=== PATIENT | male | born 1980 | race Caucasian/White ===

== ENCOUNTER 2024-05-08 20:23 | Inpatient (IN) ==
[2024-05-08] MEDS ORDERED: VANCOMYCIN CONSULT ACTIVE PRN (20:50)
[2024-05-08 21:06] LABS: Basophils # (auto) 0.07 K/uL (0.00-0.20); Basophils % (auto) 0.5 %; Eosinophils # (auto) 0.05 K/uL (0.00-0.50); Eosinophils % (auto) 0.4 %; Hematocrit (blood only) 44.8 % (42.0-52.0); Hemoglobin 15.6 g/dl (14.0-18.0); Immature Granulocytes # (auto) 0.06 K/uL (0.01-0.20); Immature Granulocytes % (auto) 0.4 %; Lymphocytes # (auto) 2.56 K/uL (1.20-3.40); Mean Corpuscular Hemoglobin 31.1 pg (25.0-34.0); Mean Corpuscular Hgb Conc 34.8 g/dL (32.0-36.0); Mean Corpuscular Volume 89.2 fL (80.0-100.0); Mean Platelet Volume 9.9 fL (9.4-12.4); Monocytes # (auto) 1.47 K/uL (0.11-0.59); Monocytes % (auto) 10.9 %; Neutrophils # (auto) 9.27 K/uL (1.40-6.50); Neutrophils % (auto) 68.8 %; Platelet Count 294 K/uL (130-400); RDW Standard Deviation 39.1 fL (36.4-46.3); Red Blood Count 5.02 M/uL (4.70-6.10); White Blood Count 13.48 K/ul (4.8-10.8)
[2024-05-08] MEDS: SODIUM CHLORIDE 0.9% 1,000 ML IV ONE (21:06)
[2024-05-08] MEDS: cefTRIAXone SODIUM 2,000 MG/50 ML BAG IV STA (21:07)
[2024-05-08] MEDS: DIPHTHER/TETAN/PERTUS Vaccine (Tdap, Adol/Adult) 0.5mL IM ONE (21:07)
[2024-05-08] MEDS: VANCOMYCIN HCL 1,750 MG in SODIUM CHLORIDE 0.9% 500 ML IV STA (21:34)
[2024-05-08 22:18] LABS: Albumin Globulin Ratio 1.7 (0.9-2); Albumin Level 4.7 gm/dl (3.4-5.0); BUN Creatinine Ratio 8.1 (10-20); Bilirubin,Total 0.9 mg/dl (0.2-1.0); Calcium 9.6 mg/dl (8.6-10.3); Creatinine Clr Calc Pharmacy 122.9 ml/min; Est GFR (African American) 124.8 ml/min; Est GFR (Non-African American) 107.7 ml/min; Globulin 2.8 gm/dl (2.5-4.0); Potassium 3.5 mmol/L (3.5-5.1); Total Protein 7.5 gm/dl (6.0-8.3)
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
[2024-05-09] MEDS ORDERED: Ativan IV Alcohol Withdrawal--Active Protocol IV PRN (01:59)
[2024-05-09] MEDS ORDERED: LORazepam 2 MG in SYRINGE 1 ML IV PRN (01:59)
[2024-05-09] MEDS ORDERED: POLYETHYLENE (MIRALAX) 17 GM PACK PO PRN (01:59)
[2024-05-09] MEDS ORDERED: GABAPENTIN 1200MG ALCOHOL WITHDRAWAL LOAD PO STA (01:59)
[2024-05-09] MEDS ORDERED: LORazepam 1 MG in SYRINGE 0.5 ML IV PRN (01:59)
[2024-05-09] MEDS ORDERED: LORazepam 3 MG in SYRINGE 1.5 ML IV PRN (01:59)
[2024-05-09] MEDS: MULTI-VITAMIN INFUSION 10 ML, THIAMINE HCL 100 MG, FOLIC ACID 1 MG in SODIUM CHLORIDE 0... IV ONE (02:50)
[2024-05-09] MEDS: GABAPENTIN 600 MG TAB PO ONE (02:52)
[2024-05-09] MEDS: HYDROmorphone INJ 0.5 MG/0.5 ML SYR IV PRN (04:54)
[2024-05-09] MEDS: SODIUM CHLORIDE 0.9% 1,000 ML IV SCH (04:58)
[2024-05-09] MEDS: VANCOMYCIN HCL 1,500 MG in SODIUM CHLORIDE 0.9% 500 ML IV SCH (04:59)
[2024-05-09 06:51] LABS: Basophils # (auto) 0.07 K/uL (0.00-0.20); Basophils % (auto) 0.7 %; Eosinophils # (auto) 0.08 K/uL (0.00-0.50); Eosinophils % (auto) 0.8 %; Hematocrit (blood only) 38.8 % (42.0-52.0); Hemoglobin 13.3 g/dl (14.0-18.0); Immature Granulocytes # (auto) 0.03 K/uL (0.01-0.20); Immature Granulocytes % (auto) 0.3 %; Lymphocytes # (auto) 2.46 K/uL (1.20-3.40); Lymphocytes % (auto) 23.4 %; Mean Corpuscular Hemoglobin 30.9 pg (25.0-34.0); Mean Corpuscular Hgb Conc 34.3 g/dL (32.0-36.0); Mean Platelet Volume 10.2 fL (9.4-12.4); Monocytes # (auto) 1.19 K/uL (0.11-0.59); Monocytes % (auto) 11.3 %; Neutrophils % (auto) 63.5 %; Platelet Count 226 K/uL (130-400); RDW Standard Deviation 39.8 fL (36.4-46.3); Red Blood Count 4.31 M/uL (4.70-6.10); White Blood Count 10.53 K/ul (4.8-10.8)
[2024-05-09 07:07] LABS: Albumin Globulin Ratio 1.6 (0.9-2); Albumin Level 3.6 gm/dl (3.4-5.0); BUN Creatinine Ratio 10.8 (10-20); Bilirubin,Total 0.5 mg/dl (0.2-1.0); Est GFR (African American) 132.8 ml/min; Est GFR (Non-African American) 114.6 ml/min; Globulin 2.3 gm/dl (2.5-4.0); Magnesium 2.1 mg/dl (1.7-2.4); Potassium 3.8 mmol/L (3.5-5.1); Total Protein 5.9 gm/dl (6.0-8.3)
--- NOTE | 2024-05-09 07:08 | XRay Report ---
XR elbow RT min 3V routine CLINICAL HISTORY: Right elbow infection after trauma. COMPARISON: None FINDINGS: Alignment of the right elbow is anatomic. There is no acute fracture. No bony erosion is i dentified. No evidence for joint effusion. Posterior right elbow soft tissue swelling is noted. Irreg ularity of the proximal posterior soft tissues of the right forearm is also noted. There are associat ed punctate radiodensities which project over the skin or subcutaneous tissues. IMPRESSION: 1. No fractures within the right elbow. No joint effusion. No evidence for osteomyelitis. 2. Posterior right elbow and proximal forearm soft tissue swelling with soft tissue irregularity whic h may reflect a laceration. Associated punctate radiodensities project over the skin or subcutaneous tissues. These may reflect debris/tiny foreign bodies. ACT 112: Negative or not required by law. Electronically signed by: Eron Palumbo M.D. 05/09/2024 7:06 AM
[2024-05-09 07:42] LABS: Folate (Folic Acid),Ser orPlas > 22.30 ng/ml (>5.38)
[2024-05-09 07:43] LABS: Vitamin B12 291 pg/ml (180-914)
[2024-05-09] MEDS: THIAMINE HCL 100 MG TAB PO SCH (08:07)
[2024-05-09] MEDS: FOLIC ACID 1 MG TAB PO SCH (08:07)
[2024-05-09] MEDS: GABAPENTIN 600 MG TAB PO SCH ×2 (08:07→21:31)
[2024-05-09] MEDS: ACETAMINOPHEN 325 MG TAB PO PRN (08:07)
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
--- NOTE | 2024-05-09 09:58 | XRay Report ---
XR shoulder RT min 2V routine CLINICAL HISTORY: Shoulder pain. Recent fall COMPARISON: None FINDINGS: There is slight widening of the right AC joint interval. Several corticated ossicles along the distal right clavicle measure up to 1.6 cm. No acute fractures are identified. Alignment of the right humeral joint is anatomic. IMPRESSION: 1. No acute fracture within the right shoulder. 2. Slight widening of the right AC joint interval with several associated well-corticated ossicles. T he findings suggest old injury. ACT 112: Negative or not required by law. Electronically signed by: Eron Palumbo M.D. 05/09/2024 9:57 AM
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
--- NOTE | 2024-05-09 16:31 | Anesthesiology Consultation ---
Date of Service May 09, 2024 Assessment & Plan Chart Review Chart Review: Acceptable Risk for Surgery and Patient NOT seen in Pre Admission Testing Consults Requested none History Surgery Operation Date: 05/09/24 09:10 Proposed Procedures p Right Elbow Incision and Drainage - Samuel Fauzia Campoverde MD Height/Weight Height: 5 ft 7 in Weight: 94.6 kg Allergies Allergy/AdvReac Type Severity Reaction Status Date / Time cat dander Allergy Congested Verified 05/08/24 23:51 dog dander Allergy Congested Verified 05/08/24 23:51 grass pollen Allergy Congested Verified 05/08/24 23:51 pollen extracts Allergy Congested Verified 05/08/24 23:51 Medications Home Medications Medication Instructions Recorded Confirmed Last Taken gabapentin 100 mg capsule 100 mg PO TID 05/08/24 05/08/24 Unknown Active Medications Generic Name Dose Route Start Last Admin Trade Name Freq PRN Reason Stop Dose Admin Acetaminophen 650 mg 05/09/24 01:59 05/09/24 08:07 Acetaminophen 325 Mg Tab PO 06/08/24 01:58 650 mg Q4H PRN Administration pain/fever Folic Acid 1 mg 05/09/24 09:00 05/09/24 08:07 Folic Acid 1 Mg Tab PO 06/08/24 08:59 1 mg QAM RAVI Administration Hydromorphone HCl 0.5 mg 05/09/24 01:59 05/09/24 04:54 Hydromorphone Inj 0.5 Mg/0.5 Ml Syr IV 05/23/24 01:58 0.5 mg Q6H PRN Administration Severe Pain (Scale 7, 8, 9,10) Sodium Chloride 1,000 mls @ 100 mls/hr 05/09/24 04:30 05/09/24 13:16 Nss IV 06/08/24 04:29 100 mls/hr .Q10H RAVI Administration Vancomycin HCl 1,500 mg/ 530 mls @ 200 mls/hr 05/09/24 04:00 05/09/24 08:24 Sodium Chloride IV 05/16/24 03:59 Infused Q12H RAVI Infusion Thiamine HCl 100 mg 05/09/24 09:00 05/09/24 08:07 Thiamine Hcl 100 Mg Tab PO 06/08/24 08:59 100 mg QAM RAVI Administration Past Medical History Medical History No pertinent past medical history Past Family History Family History Other No pertinent family history Past Surgical History Surgical History No pertinent past surgical history Social History Smoking Status: Current every day smoker Do You Dip or Chew Tobacco: No Hx Alcohol Use: Yes Alcohol type: beer alcohol intake frequency: other Alcohol Intake Frequency Comment: 7-8 beers per day Hx Substance Use: No Physical Exam Vital Signs Last Vital Signs Temp 37.2 C 05/09/24 14:52 Pulse 74 05/09/24 14:52 Resp 16 05/09/24 14:52 BP 132/82 05/09/24 14:52 Pulse Ox 98 05/09/24 14:52 O2 Del Method Room Air 05/09/24 14:52 Testing Laboratory Results 05/09/24 06:29 05/09/24 06:29 05/08/24 20:51 Gram Stain - Final Elbow Wound Culture - Preliminary Pin-point growth present, reincubating.
[2024-05-09] MEDS ORDERED: fentaNYL citrate PF 100 MCG/2 ML VIAL ONE (16:57)
[2024-05-09] MEDS ORDERED: LIDOCAINE 2% 2 ML VIAL/AMP(20MG/ML) INFIL ONE (16:57)
[2024-05-09] MEDS ORDERED: MIDAZOLAM HCL 1 MG/ML 2ML VIAL ONE (16:57)
[2024-05-09] MEDS ORDERED: ONDANSETRON INJ 2 MG/ML 2 ML VIAL ONE (16:57)
[2024-05-09] MEDS ORDERED: fentaNYL citrate PF 100 MCG/2 ML VIAL IV PRN (16:57)
[2024-05-09] MEDS ORDERED: DEXAMETHASONE SOD INJ 4 MG/ML VIAL ONE (16:57)
[2024-05-09] MEDS ORDERED: ONDANSETRON INJ 2 MG/ML 2 ML VIAL IV PRN (16:57)
[2024-05-09] MEDS ORDERED: ePHEDrine sulfate 50 MG/ML AMP IV PRN (16:57)
[2024-05-09] MEDS ORDERED: ATROPINE SULFATE 0.1 MG/ML 10ML SYR IV PRN (16:57)
[2024-05-09] MEDS ORDERED: GLYCOPYRROLATE 0.2 MG/ML VIAL ONE (17:57)
[2024-05-09] MEDS ORDERED: KETAMINE HCL 10MG/ML SYR ONE (17:58)
[2024-05-09] MEDS ORDERED: HYDROmorphone INJ 2 MG/ML SYR/VIAL ONE (18:02)
--- NOTE | 2024-05-09 19:04 | Post Operative Brief Note ---
Immediate Post Op Note Date of Surgery May 09, 2024 Pre & Post Diagnosis Operation Date: 05/09/24 09:10 Pre-Op Diagnosis: (1) Open wound of right elbow Post-Op Diagnosis: (1) Open wound of right elbow I identified the patient and participated in the time-out.: Yes Procedure Operation Date: 05/09/24 09:10 Actual Procedures p Right Elbow Incision and Drainage(Right) - Samuel Campoverde MD Surgeon Samuel Campoverde MD Commission Sales Associate Ariella Ware DO & Ariella Cutler PA-C Estimated Blood Loss 30 Findings Consistent with Post-Op Diagnosis Fluids 700 cc Specimens Right elbow Cx & S Drains Hemovac Drain Anesthesia Type MAC Complications none
--- NOTE | 2024-05-09 19:09 | Operative Report ---
Post Operative Report Pre & Post Diagnosis Operation Date: 05/09/24 09:10 Pre-Op Diagnosis: Open wound of right elbow Post-Op Diagnosis: Open wound of right elbow I identified the patient and participated in the time-out.: Yes Procedure Operation Date: 05/09/24 09:10 Actual Procedures p Right Elbow Incision and Drainage(Right) - Samuel Campoverde MD Surgeon Samuel Campoverde MD Parachute Harness Rigger Ariella Ware DO & Ariella Cutler PA-C Estimated Blood Loss 30 Findings See Below Open wound right elbow, with serosanguineous drainage, went down to the fascia and olecranon. Significant fibrous tissue along and within the wound involving the olecranon bursa. Curve laceration over the proximal Ulnar forearm/elbow (8 cm). Fluids 700 cc Specimens Right elbow Cx & S Drains HVAC Anesthesia Type MAC Complications none Indications The patient had draining wound from there right elbow that appears to be infected. The patient understands the risks of surgery, which include but are n ot limited to: bleeding, infection, re-operation, damage to nerves and arteries, continued pain and DVT. The patient understands all of these instructions and explanations, all of their questions have been satisfactorily addressed. The patient has elected to proceed with surgery and the informed consent was signed. Description of Procedure The patient was taken to the Operating Room and placed in the lazy lateral position on the operating table. After sufficient sedation was administered a multidisciplinary time-out was performed identifying my initials on the right limb as the correct and operative limb. The patient has been receiving IV Vancomycin. The right arm was prepped and draped in the usual Orthopaedic sterile fashion. The skin edges of the laceration as well as planned extension of the wound radially around the olecranon were injected with a 50:50 mixture of 1% lidocaine and 0.5 % Marcaine with epi for a total of 10 cc. There was devitalized, necrotic soft tissue within the wound and under the proximal flap of skin to the olecranon. The fascia, muscle, and bone were otherwise intact. There also appeared to be purulent drainage which was cultured. The non-viable skin, soft tissue down to the olecranon was removed with a combination of sharp dissection with the scalpel, scissors, Versajet, and rongeur. The wound was copiously irrigated with 6.5 L normal saline. Following irrigation and debridement there was healthy viable red beefy tissue that was bleeding. A Hemovac drain was placed and sutured in place. The skin were closed with 3-0 & 2-0 Prolene. The wound was covered Xeroform, 4 x 4's, ABDs, sterile cast padding, and an RAY. The sponge and needle counts were correct. POST-OP: Patient will be re-admitted to the hospitalist service and continued on IV Vancomycin. Will re-evaluate the wound POD. I attest to the content of the Intraoperative Record and any orders documented therein. Any exceptions are noted below.
[2024-05-09] MEDS: LIDOCAINE 1%/EPINEPHRINE 1:100,000 50 ML VIAL ONE (19:16)
--- NOTE | 2024-05-09 19:32 | Operative Report ---
Post Operative Report Pre & Post Diagnosis Operation Date: 05/09/24 09:10 Pre-Op Diagnosis: (1) Open wound of right elbow: Post-Op Diagnosis: (1) Open wound of right elbow: I identified the patient and participated in the time-out.: Yes Procedure Operation Date: 05/09/24 09:10 Actual Procedures p Right Elbow Incision and Drainage(Right) - Samuel Campoverde MD Surgeon DO Assistant Ariella Nugent DO & C TAMMY Cutler Estimated Blood Loss 30 Findings Consistent with Post-Op Diagnosis Specimens Cultures right elbow wound x1 Drains Hemovac drain Description of Procedure The patient was taken to the operating room where they underwent MAC sedation per anesthesia provider. They were prepped and draped in the usual sterile fashion. Please see Dr. Campoverde's operative report for specifics of the procedure. I was present for the entire case from initial patient positioning through final closure. Assistance was provided in tissue retraction, hemostasis, wound debridement, final wound closure, and postoperative bandaging. The patient was taken to the recovery room in satisfactory condition. I attest to the content of the Intraoperative Record and any orders documented therein. Any exceptions are noted below.
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
--- NOTE | 2024-05-09 19:51 | Anesthesiology Progress Note ---
Date of Service May 09, 2024 Anesthesia Post Procedure Vital Signs Vital Signs: Temp Pulse Pulse Pulse Resp BP BP 05/09/24 19:45 37.4 C 82 14 144/99 H 05/09/24 19:35 87 12 155/91 H 05/09/24 19:26 37.0 C 95 H 20 146/110 H 05/09/24 16:15 38.6 C H 77 18 05/09/24 16:00 05/09/24 14:52 37.2 C 74 16 132/82 05/09/24 08:17 05/09/24 07:54 36.9 C 76 18 139/73 05/09/24 04:46 36.8 C 77 16 05/09/24 01:35 36.9 C 77 16 05/08/24 22:48 78 18 05/08/24 21:25 73 18 05/08/24 20:26 36.9 C 96 H 16 150/90 H BP Pulse Ox O2 Del Method O2 Flow Rate 05/09/24 19:45 94 Room Air 05/09/24 19:35 100 Oxymask 8 05/09/24 19:26 95 Oxymask 8 05/09/24 16:15 151/84 H 97 Room Air 05/09/24 16:00 Room Air 05/09/24 14:52 98 Room Air 05/09/24 08:17 Room Air 05/09/24 07:54 94 Room Air 05/09/24 04:46 128/78 96 Room Air 05/09/24 01:35 148/74 H 98 Room Air 05/08/24 22:48 125/91 96 Room Air 05/08/24 21:25 133/85 96 Room Air 05/08/24 20:26 96 Room Air Pain Intensity Right Elbow: Pain Intensity: 2 Transfer of Care Handoff Completed per policy Notes Mental Status: alert / awake / arousable Patient Amnestic to Procedure: Yes Nausea / Vomiting: adequately controlled Pain: adequately controlled Airway Patency, RR, SpO2: stable & adequate BP & HR: stable & adequate Hydration State: stable & adequate Anesthetic Complications: no major complications apparent and Pt Satisfied with anesthetic care
[2024-05-09] MEDS: cefTRIAXone SODIUM 2,000 MG/50 ML BAG IV SCH (21:31)
[2024-05-10 08:00] LABS: Hematocrit (blood only) 36.7 % (42.0-52.0); Hemoglobin 12.3 g/dl (14.0-18.0); Mean Corpuscular Hemoglobin 30.5 pg (25.0-34.0); Mean Corpuscular Hgb Conc 33.5 g/dL (32.0-36.0); Mean Corpuscular Volume 91.1 fL (80.0-100.0); Mean Platelet Volume 10.4 fL (9.4-12.4); Platelet Count 224 K/uL (130-400); RDW Coefficient of Variation 11.9 % (11.5-14.5); RDW Standard Deviation 39.7 fL (36.4-46.3); Red Blood Count 4.03 M/uL (4.70-6.10); White Blood Count 10.92 K/ul (4.8-10.8)
[2024-05-10 08:19] LABS: Calcium 8.4 mg/dl (8.6-10.3); Creatinine Clr Calc Pharmacy 128.4 ml/min; Est GFR (African American) 126.7 ml/min; Est GFR (Non-African American) 109.3 ml/min; Potassium 4.1 mmol/L (3.5-5.1)
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
--- NOTE | 2024-05-10 13:00 | Orthopedic Progress Note ---
Date of Service May 10, 2024 Assessment & Plan (1) Open wound of right elbow: Plan: Septic olecranon bursitis right elbow status post open wound. Status post I&D right elbow with Dr. Campoverde on May 09, 2024. Hemovac drain was removed today. A new bulky dressing was applied. Will continue to monitor and evaluate the wound over the next few days. He can do gentle range of motion with his right arm as tolerated. No heavy pushing, pulling or lifting. No pressure on the right elbow. Encouraged ice and elevation of the right upper extremity. Sling right arm for comfort. He can be out of bed as tolerated. Regular diet. Pain medication as needed. Encouraged finger and elbow range of motion Continue IV antibiotics. Dr. Campoverde would like to get an ID consult. Culture results from OR are pending but initial results are no organisms. Previous organisms are gram-negative bacilli. Blood cultures are negative. Patient understands and agrees with the plan. Would like at least 48 hours of IV antibiotics before discharged home. Case management for disposition needs. Will continue to follow. Admission and Anticipated Discharge Date Admission Date: May 08, 2024 Supervising Physician Co-Signing Physician Notes I, Dr. Campoverde, saw and examined the patient and agree with the above findings and plan of care, that I discussed with my PA. Subjective Patient in bed resting. States that he is getting bored. He denies any significant pain in the elbow. Does feel better today than yesterday. No issues from anesthesia overnight. Tolerating a regular diet. Denies any numbness or tingling in his right upper extremity. Physical Exam Musculoskeletal: Exam of his right elbow: His postoperative dressings were removed. His incision is clean, dry and intact. He has some what appears to be some necrotic area just over the olecranon. There is no collection of fluid in the bursa. Is mildly tender with palpation as expected postoperatively. Sutures are retained. No active drainage. His Hemovac stitch was removed and the Hemovac was pulled at bedside. Mild edema into the forearm. Less erythema throughout the upper arm and around the elbow itself. Tolerates gentle range of motion of the elbow. A new bulky dressing was reapplied along with an Carlos Manuel bandage. Full range of motion of fingers, wrist. Capillary fill is brisk. Distal pulses are 1+. Results & Data Vital Signs (Past 12 Hours) Vital Signs Temp Pulse Pulse Resp BP Pulse Ox O2 Del Method 05/10/24 12:39 37.4 C 68 16 133/75 98 Room Air 05/10/24 12:04 36.6 C 80 16 150/74 H 98 Room Air 05/10/24 07:32 37.3 C 68 16 115/51 L 97 Room Air 05/10/24 03:05 38 C H 79 16 132/71 93 Room Air Laboratory Results 05/10/24 05/10/24 Range/Units 11:38 07:12 WBC 10.92 H (4.8-10.8) K/ul RBC 4.03 L (4.70-6.10) M/uL Hgb 12.3 L (14.0-18.0) g/dl Hct 36.7 L (42.0-52.0) % MCV 91.1 (80.0-100.0) fL MCH 30.5 (25.0-34.0) pg MCHC 33.5 (32.0-36.0) g/dL RDW Std Deviation 39.7 (36.4-46.3) fL RDW Coeff of Anneliese 11.9 (11.5-14.5) % Plt Count 224 (130-400) K/uL MPV 10.4 (9.4-12.4) fL Sodium 138 (136-145) mmol/L Potassium 4.1 (3.5-5.1) mmol/L Chloride 106 (98-107) mmol/L Carbon Dioxide 26 (21-32) mmol/L Anion Gap 6 (3-11) BUN 5 L (6-23) mg/dl Creatinine 0.83 (0.6-1.4) mg/dl Est Cr Clr Drug Dosing 128.4 ml/min Est GFR ( Amer) 126.7 ml/min Est GFR (Non-Af Amer) 109.3 ml/min BUN/Creatinine Ratio 6.0 L (10-20) Glucose 117 H (70-99(Fasting)) mg/dl Calcium 8.4 L (8.6-10.3) mg/dl Random Vancomycin 8.1 L (10-20) mcg/ml Microbiology 05/09/24 Unknown Gram Stain - Final Elbow Aerobic and Anaerobic Culture - Preliminary Pin-point growth present, reincubating. 05/08/24 20:51 Gram Stain - Final Elbow Wound Culture - Preliminary Gram negative bacilli Gram negative bacilli#2 05/08/24 20:50 Aerobic Blood Culture - Preliminary Blood No growth in Aerobic bottle after 24 hours. Anaerobic Blood Culture - Preliminary No growth in Anaerobic bottle after 24 hours.
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
[2024-05-10] MEDS: VANCOMYCIN HCL 1,500 MG in SODIUM CHLORIDE 0.9% 500 ML IV SCH (15:32)
[2024-05-10] MEDS: GABAPENTIN 600 MG TAB PO SCH (23:12)
[2024-05-11 07:21] LABS: Basophils # (auto) 0.04 K/uL (0.00-0.20); Basophils % (auto) 0.5 %; Eosinophils # (auto) 0.18 K/uL (0.00-0.50); Eosinophils % (auto) 2.1 %; Hemoglobin 13.3 g/dl (14.0-18.0); Immature Granulocytes # (auto) 0.03 K/uL (0.01-0.20); Immature Granulocytes % (auto) 0.3 %; Lymphocytes # (auto) 2.37 K/uL (1.20-3.40); Lymphocytes % (auto) 27.3 %; Mean Corpuscular Hgb Conc 34.1 g/dL (32.0-36.0); Mean Corpuscular Volume 90.9 fL (80.0-100.0); Mean Platelet Volume 10.5 fL (9.4-12.4); Monocytes # (auto) 1.01 K/uL (0.11-0.59); Monocytes % (auto) 11.6 %; Neutrophils # (auto) 5.05 K/uL (1.40-6.50); Neutrophils % (auto) 58.2 %; Platelet Count 243 K/uL (130-400); RDW Coefficient of Variation 11.7 % (11.5-14.5); RDW Standard Deviation 38.7 fL (36.4-46.3); Red Blood Count 4.29 M/uL (4.70-6.10); White Blood Count 8.68 K/ul (4.8-10.8)
[2024-05-11 07:48] LABS: Albumin Level 3.7 gm/dl (3.4-5.0); Bilirubin,Total 0.5 mg/dl (0.2-1.0); Calcium 8.7 mg/dl (8.6-10.3); Potassium 3.8 mmol/L (3.5-5.1)
[2024-05-11 07:54] LABS: Albumin Globulin Ratio 1.3 (0.9-2); BUN Creatinine Ratio 9.1 (10-20); Creatinine Clr Calc Pharmacy 138.4 ml/min; Est GFR (African American) 130.6 ml/min; Est GFR (Non-African American) 112.7 ml/min; Globulin 2.8 gm/dl (2.5-4.0); Total Protein 6.5 gm/dl (6.0-8.3)
[2024-05-11] MEDS: CEFEPIME 2,000 MG in SYRINGE 0 ML IV SCH (10:17)
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
--- NOTE | 2024-05-11 12:50 | Orthopedic Progress Note ---
Date of Service May 11, 2024 Assessment & Plan (1) Open wound of right elbow: Plan: POD # 2 Status post I&D right elbow with Dr. Campoverde on May 09, 2024. A new bulky dressing was applied. Will continue to monitor and evaluate the wound over the next few days. He can do gentle range of motion with his right arm as tolerated. No heavy pushing, pulling or lifting. No pressure on the right elbow. Encouraged ice and elevation of the right upper extremity. Sling right arm for comfort. He can be out of bed as tolerated. Regular diet. Pain medication as needed. Encouraged finger and elbow range of motion Continue IV antibiotics. Awaiting ID consult. Culture results from OR are gram-negative bacilli. Blood cultures are negative. Patient understands and agrees with the plan. Defer antibiotic choice to ID before discharged home. Case management for disposition needs. Will continue to follow. Continue care per primary service. Admission and Anticipated Discharge Date Admission Date: May 08, 2024 Subjective Feeling better, the elbow feels tight. Physical Exam Physical Exam: RUE: Neurovascularly intact. Incision portion looks great, the wound portion has blackened edge, will likely slough at some point. No significant swelling. Decreased erythema. Slight warmth about the elbow. ROM 5-125 deg. Results & Data Vital Signs (Past 12 Hours) Vital Signs Temp Pulse Resp BP Pulse Ox O2 Del Method 05/11/24 11:43 Room Air 05/11/24 07:25 36.6 C 81 18 156/83 H 98 Room Air Laboratory Results 05/11/24 Range/Units 06:26 WBC 8.68 (4.8-10.8) K/ul RBC 4.29 L (4.70-6.10) M/uL Hgb 13.3 L (14.0-18.0) g/dl Hct 39.0 L (42.0-52.0) % MCV 90.9 (80.0-100.0) fL MCH 31.0 (25.0-34.0) pg MCHC 34.1 (32.0-36.0) g/dL RDW Std Deviation 38.7 (36.4-46.3) fL RDW Coeff of Anneliese 11.7 (11.5-14.5) % Plt Count 243 (130-400) K/uL MPV 10.5 (9.4-12.4) fL Immature Gran % (Auto) 0.3 % Neut % (Auto) 58.2 % Lymph % (Auto) 27.3 % [place] % (Auto) 11.6 % Eos % (Auto) 2.1 % Baso % (Auto) 0.5 % Neut # (Auto) 5.05 (1.40-6.50) K/uL Lymph # (Auto) 2.37 (1.20-3.40) K/uL [place] # (Auto) 1.01 H (0.11-0.59) K/uL Eos # (Auto) 0.18 (0.00-0.50) K/uL Baso # (Auto) 0.04 (0.00-0.20) K/uL Immature Gran # (Auto) 0.03 (0.01-0.20) K/uL Sodium 138 (136-145) mmol/L Potassium 3.8 (3.5-5.1) mmol/L Chloride 105 (98-107) mmol/L Carbon Dioxide 25 (21-32) mmol/L Anion Gap 8 (3-11) BUN 7 (6-23) mg/dl Creatinine 0.77 (0.6-1.4) mg/dl Est Cr Clr Drug Dosing 138.4 ml/min Est GFR ( Amer) 130.6 ml/min Est GFR (Non-Af Amer) 112.7 ml/min BUN/Creatinine Ratio 9.1 L (10-20) Glucose 96 (70-99(Fasting)) mg/dl Calcium 8.7 (8.6-10.3) mg/dl Total Bilirubin 0.5 (0.2-1.0) mg/dl AST 20 (13-39) U/L ALT 32 (7-52) U/L Alkaline Phosphatase 47 (34-104) U/L Total Protein 6.5 (6.0-8.3) gm/dl Albumin 3.7 (3.4-5.0) gm/dl Globulin 2.8 (2.5-4.0) gm/dl Albumin/Globulin Ratio 1.3 (0.9-2) Gram Stain Final 05/08/24-2146 Gram Stain Result Moderate WBCs Seen No Organisms Seen Surface Wound Culture Final 05/11/24-1047 Organism 1 Enterobacter cloacae Quantity Few Sens Sensitivities to Follow Organism 2 Escherichia coli Quantity Few Sens Sensitivities to Follow E cloacae E coli RX M.I.C. RX M.I.C. --- --------- --- --------- Amox/Clav S <=8/4 Ampicillin S <=8 Amp/Sul S <=8/4 Cefazolin S <=2 Cefepime S <=2 S <=2 Ceftriaxone S <=1 S <=1 Ceftriaxone S Ciprofloxacin S <=0.25 S <=0.25 Ertapenem S <=0.5 S <=0.5 Gentamicin S <=4 S <=4 Levofloxacin S <=0.5 S <=0.5 Meropenem S <=1 S <=1 Tobramycin S <=4 S <=4 Trimeth/Sulfa S <=2/38 S <=2/38 Pip/Tazo S <=16 S <=16 Enterobacter cloacae: Negative/Urine Combo 90 May acquire resistance over the course of therapy S = SENSITIVE I = INTERMEDIATE R = RESISTANT Spec: [id number] Collected: 05/09/24-UNK Received: 05/09/[address]: Samuel Campoverde MD Copy To: Williams Robbins MD Source: Elbow OV Order: Ordered: Aer/Maria L Cult/Sm Comments: Comment 1. Right Elbow Open Wound Procedure Result Verified Site Gram Stain Final 05/09/24 Gram Stain Result Moderate WBCs Seen No Organisms Seen Aero/Maria L Cult Preliminary 05/11/24-1156 Organism 1 Gram negative bacilli Quantity Few Sens Sensitivities to Follow Organism 2 Gram negative bacilli#2 Quantity Few Sens Sensitivities to Follow
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
[2024-05-11 23:12] VITALS: O2SAT 95
[2024-05-12] MEDS ORDERED: SULFAMETHOXAZOLE/TRIMETHOPRIM DS 800/160MG TAB PO SCH
--- NOTE | 2024-05-12 03:16 | Ultrasound Report ---
Exam(s): US VENOUS RIGHT UPPER EXTREMITY EXAM: US Duplex Right Upper Extremity Veins CLINICAL HISTORY: Reason for exam: swollen rt arm and mild erythema . dvt?. TECHNIQUE: Real-time duplex ultrasound scan of the right upper extremity veins integrating B-mode two-dimensional vascular structure, Doppler spectral analysis, color flow Doppler imaging and compression. COMPARISON: None. FINDINGS: Deep veins: Unremarkable. No DVT in the internal jugular, subclavian, axillary, or brachial veins. The veins demonstrate normal color flow, are normally compressible, with normal phasic flow and/or augmentation response. Superficial veins: Unremarkable. No thrombus in the visualized basilic and cephalic veins. Soft tissues: No acute findings.. IMPRESSION: Negative for DVT. . Electronically signed by: Kera Morales MD, SONI 05/12/24 03:15 AM
[2024-05-12] MEDS ORDERED: VANCOMYCIN LEVEL ONE (06:30)
[2024-05-12 07:00] LABS: Basophils # (auto) 0.06 K/uL (0.00-0.20); Basophils % (auto) 0.7 %; Eosinophils # (auto) 0.26 K/uL (0.00-0.50); Eosinophils % (auto) 3.2 %; Hematocrit (blood only) 42.2 % (42.0-52.0); Hemoglobin 14.6 g/dl (14.0-18.0); Immature Granulocytes # (auto) 0.03 K/uL (0.01-0.20); Immature Granulocytes % (auto) 0.4 %; Lymphocytes # (auto) 2.23 K/uL (1.20-3.40); Lymphocytes % (auto) 27.6 %; Mean Corpuscular Hgb Conc 34.6 g/dL (32.0-36.0); Mean Corpuscular Volume 89.6 fL (80.0-100.0); Mean Platelet Volume 10.4 fL (9.4-12.4); Monocytes # (auto) 1.05 K/uL (0.11-0.59); Neutrophils # (auto) 4.45 K/uL (1.40-6.50); Neutrophils % (auto) 55.1 %; Platelet Count 310 K/uL (130-400); RDW Coefficient of Variation 11.5 % (11.5-14.5); RDW Standard Deviation 37.9 fL (36.4-46.3); Red Blood Count 4.71 M/uL (4.70-6.10); White Blood Count 8.08 K/ul (4.8-10.8)
[2024-05-12 07:17] LABS: Albumin Globulin Ratio 1.2 (0.9-2); Albumin Level 4.1 gm/dl (3.4-5.0); BUN Creatinine Ratio 13.1 (10-20); Bilirubin,Total 0.3 mg/dl (0.2-1.0); Calcium 9.3 mg/dl (8.6-10.3); Creatinine Clr Calc Pharmacy 126.9 ml/min; Est GFR (Non-African American) 108.8 ml/min; Globulin 3.3 gm/dl (2.5-4.0); Potassium 3.9 mmol/L (3.5-5.1); Total Protein 7.4 gm/dl (6.0-8.3)
--- NOTE | 2024-05-12 10:09 | Orthopedic Progress Note ---
Date of Service May 12, 2024 Assessment & Plan (1) Open wound of right elbow: Plan: POD # 3 Status post I&D right elbow with Dr. Campoverde on May 09, 2024. Dressing Removed today. No evidence of reaccumulation of fluid collection in olecranon bursa or forearm. A new bulky dressing was applied. Will continue to monitor and evaluate the wound while in hospital. He can do gentle range of motion with his right arm as tolerated. No heavy pushing, pulling or lifting. No pressure on the right elbow. Encouraged ice and elevation of the right upper extremity. I incorporated his hand in the compressive wrap today. An Carlos Manuel bandage was applied. Encouraged mariely vation with his arm above his heart. He states that that does seem to bother her shoulder as he does think he had a previous rotator cuff injury prior to this. He should elevate it as high as comfort. He can do full range of motion of his fingers as tolerated. Sling right arm for comfort. He can be out of bed as tolerated. Regular diet. Pain medication as needed. Encouraged finger and elbow range of motion Continue IV antibiotics. Will continue to monitor for ID recommendations and changes. Currently on IV cefepime. Culture results from OR are gram-negative bacilli. Blood cultures are negative. Patient currently n.p.o. for possible or today. Did not feel there is any indication for a repeat incision and drainage of the right elbow or upper arm. He do not think that surgery will add any benefit. Would encourage ice, elevation and IV antibiotics. Regular diet resumed. Patient understands and agrees with the plan. Defer antibiotic choice to ID before discharged home. Case management for disposition needs. Will continue to follow. Continue care per primary service. Discussed findings with Dr. Campoverde. Admission and Anticipated Discharge Date Admission Date: May 08, 2024 Supervising Physician Co-Signing Physician Notes I, Dr. Campoverde, saw and examined the patient and agree with the above findings and plan of care, that I discussed with my PA. Subjective Patient resting in bed. He is trying to sleep. He states that his arm is little more swollen today. There is some issues with swelling from the nurse last evening and the dressing was loosed which did help. He notes some more edema into the right inner upper arm. He states is not so much is painful there but more "itchy". He said no new injury. Denies any increased pain in the right elbow or forearm. States that with elevation and compression it has gotten better. Physical Exam Musculoskeletal: Exam of his right upper extremity: His dressing was removed. He does have some edema into the dorsum of his hand and into the MCP joints it is nontender with palpation. He is able to fully move it and flex his fingers. Distal sensation is normal. Distal pulses are 1+. He tolerates active range of motion of the wrist. The forearm also has some edema especially into the undersurface of it which is mildly tender and feels sore. There is no evidence of an active abscess or fluctuance. There is mild warmth and erythema. The incision itself is clean, dry and intact. There is no reaccumulation of fluid in the olecranon bursa. It is mildly tender with palpation but no active drainage. Nothing able to be expressed from the incision itself. He has also some erythema and edema into the inner upper arm. There is no skin rash. It is mildly tender with palpation. Mild warmth. No blisters or again areas of abscess or fluctuance. He tolerates gentle active range of motion of the elbow and shoulder. Results & Data Vital Signs (Past 12 Hours) Vital Signs Temp Pulse Pulse Resp BP Pulse Ox O2 Del Method 05/12/24 07:58 36.6 C 79 16 128/92 95 Room Air 05/11/24 23:11 36.8 C 75 16 130/89 95 Room Air Laboratory Results 05/12/24 Range/Units 06:09 WBC 8.08 (4.8-10.8) K/ul RBC 4.71 (4.70-6.10) M/uL Hgb 14.6 (14.0-18.0) g/dl Hct 42.2 (42.0-52.0) % MCV 89.6 (80.0-100.0) fL MCH 31.0 (25.0-34.0) pg MCHC 34.6 (32.0-36.0) g/dL RDW Std Deviation 37.9 (36.4-46.3) fL RDW Coeff of Anneliese 11.5 (11.5-14.5) % Plt Count 310 (130-400) K/uL MPV 10.4 (9.4-12.4) fL Immature Gran % (Auto) 0.4 % Neut % (Auto) 55.1 % Lymph % (Auto) 27.6 % [place] % (Auto) 13.0 % Eos % (Auto) 3.2 % Baso % (Auto) 0.7 % Neut # (Auto) 4.45 (1.40-6.50) K/uL Lymph # (Auto) 2.23 (1.20-3.40) K/uL [place] # (Auto) 1.05 H (0.11-0.59) K/uL Eos # (Auto) 0.26 (0.00-0.50) K/uL Baso # (Auto) 0.06 (0.00-0.20) K/uL Immature Gran # (Auto) 0.03 (0.01-0.20) K/uL Sodium 138 (136-145) mmol/L Potassium 3.9 (3.5-5.1) mmol/L Chloride 103 (98-107) mmol/L Carbon Dioxide 27 (21-32) mmol/L Anion Gap 8 (3-11) BUN 11 (6-23) mg/dl Creatinine 0.84 (0.6-1.4) mg/dl Est Cr Clr Drug Dosing 126.9 ml/min Est GFR ( Amer) 126.0 ml/min Est GFR (Non-Af Amer) 108.8 ml/min BUN/Creatinine Ratio 13.1 (10-20) Glucose 102 H (70-99(Fasting)) mg/dl Calcium 9.3 (8.6-10.3) mg/dl Total Bilirubin 0.3 (0.2-1.0) mg/dl AST 30 (13-39) U/L ALT 52 (7-52) U/L Alkaline Phosphatase 56 (34-104) U/L Total Protein 7.4 (6.0-8.3) gm/dl Albumin 4.1 (3.4-5.0) gm/dl Globulin 3.3 (2.5-4.0) gm/dl Albumin/Globulin Ratio 1.2 (0.9-2) Diagnostic Findings RUE Doppler, No DVT
[2024-05-12 12:53] VITALS: BP 120/76; PULSE 75; RESP 17; TEMP 98.1
[2024-05-12] MEDS: GABAPENTIN 600 MG TAB PO SCH (13:13)
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
[2024-05-12] MEDS: SULFAMETHOXAZOLE/TRIMETHOPRIM DS 800/160MG TAB PO ONE (16:47)
[2024-05-13] MEDS ORDERED: GABAPENTIN 100 MG CAP PO SCH (09:00)
== END 2024-05-12 17:13 | disposition home or self-care (01) | DRG 464 ==
LOC: ED 20:23 → 3E 23:57 → SUATTDRO 23:57 → 3E 05-09 01:32